=== PATIENT | male | born 1970 | race Two or more races ===

== ENCOUNTER 2016-07-27 11:56 | Emergency (ER) | payer BC ==
[~2016-07-27] VITALS: Ht 177.8 cm; Wt 93.9 kg
[2016-07-27] MEDS ORDERED: XANA0.25 PO (12:08)
[2016-07-27] MEDS ORDERED: ADDE20CA PO (12:08)
[2016-07-27] MEDS ORDERED: HYDR-4274 PO (12:08)
[2016-07-27] MEDS ORDERED: NS 1,000 ML IV ONE (13:45)
[2016-07-27 13:52] LABS: BASO # 0.1 K/mm3 (0.0-0.2); BASO % 1.2 % (0.0-1.0); EOS # 0.2 K/mm3 (0.0-0.50); EOS % 2.8 % (0.0-3.0); LARGE UNSTAINED CELL # 0.1 K/mm3 (0.0-0.4); LARGE UNSTAINED CELL % 1.4 % (0.0-4.0); LYMPH # 1.7 K/mm3 (1.5-4.5); LYMPH % 19.6 % (24.0-44.0); MEAN CORPUSCULAR HEMOGLOBIN 31.1 pg (27.0-33.0); MEAN CORPUSCULAR HGB CONC 32.2 g/dl (32.0-36.5); MEAN CORPUSCULAR VOLUME 96.5 fl (80.0-96.0); MONO # 0.6 K/mm3 (0.0-0.8); MONO % 6.9 % (0.0-5.0); NEUTROPHILS # 5.5 K/mm3 (1.8-7.7); NEUTROPHILS % 68.1 % (36.0-66.0); PLATELET COUNT, AUTOMATED 252 k/mm3 (150-450); WHITE BLOOD COUNT 8.1 K/mm3 (4.0-10.0)
[2016-07-27 13:54] LABS: CALCIUM OXALATE CRYSTALS MODERATE
[2016-07-27 14:00] LABS: INR 0.95
--- NOTE | 2016-07-27 14:11 | REP ---
Clinical: Hematuria. Comparison: 10/04/2015. Findings: Lung bases clear. Visualized heart and pericardium normal. Liver, spleen, pancreas, collapsed gallbladder, bilateral adrenal glands and kidneys are normal for noncontrast evaluation. Specifically, there is no perinephric stranding, hydroureteronephrosis, intrarenal or obstructing ureteral calculi. The enteric system is without obstruction or acute inflammatory process and a normal terminal ileum and appendix are identified in the right lower quadrant. Pelvis demonstrates normal bladder and age appropriate prostate/seminal vesicles. Small fat containing left inguinal hernia is suggested. No ascites. No free air. No adenopathy. Abdominal aorta normal caliber without aneurysm. 1 cm fat containing periumbilical hernia. Musculoskeletal structures normal. Impression: No acute intra-abdominal or pelvic pathology appreciated. Small fat containing left inguinal and periumbilical hernias noted. Signed by Obi Knight MD 07/27/2016 02:02 P
[2016-07-27 14:14] LABS: ALBUMIN 4.1 GM/DL (3.2-5.2); ALBUMIN/GLOBULIN RATIO 1.17 (1.00-1.93); ALKALINE PHOSPHATASE 77 U/L (45-117); ALT/SGPT 95 U/L (12-78); ANION GAP 6 MEQ/L (8-16); AST/SGOT 35 U/L (15-37); BILIRUBIN,DIRECT < 0.1 MG/DL (0.0-0.2); BILIRUBIN,TOTAL 0.3 MG/DL (0.2-1.0); BLOOD UREA NITROGEN 18 MG/DL (7-18); CALCIUM LEVEL 9.3 MG/DL (8.5-10.1); CARBON DIOXIDE LEVEL 30 MEQ/L (21-32); CHLORIDE LEVEL 106 MEQ/L (98-107); GLOMERULAR FILTRATION RATE > 60.0 (>60); GLUCOSE, FASTING 90 MG/DL (70-105); POTASSIUM SERUM 4.5 MEQ/L (3.5-5.1); SODIUM LEVEL 142 MEQ/L (136-145); TOTAL PROTEIN 7.6 GM/DL (6.4-8.2)
[2016-07-27 14:51] VITALS: BP 144/98
== END 2016-07-27 14:54 | disposition home or self-care (01) ==
LOC: M ED 13:55
DX: R31.9 Hematuria, unspecified (principal); K40.90 Unilateral inguinal hernia, without obstruction or gangrene, not specified as recurrent; K45.8 Other specified abdominal hernia without obstruction or gangrene; R51 Headache; F17.200 Nicotine dependence, unspecified, uncomplicated

== ENCOUNTER → 2016-07-29 | Outpatient (REF) | payer BC ==
[~2016-07-29] MED LIST: ADDE20CA PO; HYDR-4274 PO; XANA0.25 PO
== END ==
LOC: M SMT 15:31
PROVIDERS: ATTEND Nurse Practitioner Women's Health
DX: R31.0 Gross hematuria (principal)

== ENCOUNTER → 2016-08-06 | Outpatient (REF) | payer BC ==
[2016-08-06 21:52] LABS: CALCIUM OXALATE CRYSTALS,URINE SMALL AMOUNT /hpf; MICROSCOPIC EXAM PERFORMED; RBC, URINE 0-1 /hpf (0-3); SQUAMOUS EPITHELIAL CELL URINE SMALL AMOUNT /hpf (SMALL AMT); WBC, URINE 0-1 /hpf (0-3)
[2016-08-06 21:53] LABS: BACTERIA, URINE NONE SEEN; HYALINE CAST, URINE 0-1 /lpf (0-1)
== END ==
LOC: M SMT 17:07
PROVIDERS: ATTEND Specialist
DX: R31.0 Gross hematuria (principal)

== ENCOUNTER → 2016-08-25 | Outpatient (CLI) | payer BC ==
[~2016-08-25] MED LIST changes: +ISOVUE-370 76% 100ML VIAL (Q9967) As Ordered ONE
--- NOTE | 2016-08-29 10:32 | REP ---
CT abdomen pelvis multiphase scanning: Comparison is 07/27/2016. Studies performed for gross hematuria. The visualized lung yarbrough are unremarkable. Scanning is performed initially without IV contrast. This is followed by IV contrast enhanced imaging during the arterial phase of enhancement. Scanning is again performed during the delayed equilibrium phase of enhancement. The hepatic parenchyma, gallbladder, pancreas and spleen are unremarkable on all phases of the study, and unchanged. The adrenals, kidneys and abdominal aorta are unremarkable on all a phases of the study. There are no renal calculi. There is no hydronephrosis. There is no perinephric stranding. No renal masses or cysts are identified. There are no bladder calculi, nodules, or masses. There is no bowel distension. The mesentery is unremarkable. Pelvis: The appendix is unremarkable. There is no adenopathy or ascites. There is a small left inguinal hernia containing omental fat but no bowel. There is a small umbilical hernia containing omental fat but no bowel. These are unchanged. Impression: Essentially negative CT study of the abdomen pelvis with multiphase scanning. There are no renal, ureteral or bladder calculi. No renal or bladder masses are identified. No renal cysts are identified. No perinephric stranding. There is a small fat-containing umbilical hernia. There is a small fat-containing left inguinal hernia. These are unchanged. Signed by Van Duque MD 08/29/2016 10:23 A
== END ==
LOC: M RAD 15:22
PROVIDERS: ATTEND Specialist
DX: R31.0 Gross hematuria (principal); K40.90 Unilateral inguinal hernia, without obstruction or gangrene, not specified as recurrent; K42.9 Umbilical hernia without obstruction or gangrene
CPT/HCPCS: 74178; Q9967

== ENCOUNTER 2017-02-16 13:49 | Emergency (ER) | payer BC ==
[~2017-02-16] VITALS: Ht 177.8 cm; Wt 94.1 kg
[~2017-02-16 13:49] MED LIST changes: -ADDE20CA PO; +ADDE20CA3 PO; -HYDR-4274 PO; +HYDR50TA70 PO; -ISOVUE-370 76% 100ML VIAL (Q9967) As Ordered ONE
[2017-02-16] MEDS ORDERED: ALPR0.5T3 (14:21)
[2017-02-16] MEDS ORDERED: AMLO5TAB2 (14:21)
[2017-02-16] MEDS ORDERED: LIDOCAINE 1% SDV INJ 30 ML VIAL SC SCH (15:45)
[2017-02-16] MEDS ORDERED: IBUPROFEN 800 MG TAB PO ONE (16:00)
--- NOTE | 2017-02-16 16:43 | REP ---
RIGHT KNEE SERIES: Five views of the right knee are performed. There is no evidence of acute fracture or dislocation. There is a moderate joint effusion in the suprapatellar bursa. IMPRESSION: No acute fracture. Moderate joint effusion. Signed by Van Delong MD 02/17/2017 07:56 P
--- NOTE | 2017-02-16 17:04 | REP ---
Right lower extremity Duplex Doppler venous ultrasound: Real time compression and duplex Doppler interrogation of the right lower extremity deep venous system is performed. The right common femoral, superficial femoral and popliteal veins are fully compressible with transducer pressure and demonstrate normal spontaneous and phasic flow, without evidence of deep venous thrombosis. Impression: No evidence of deep venous thrombosis of the right lower extremity femoral popliteal venous system. There is a complex popliteal cyst measuring 4.5 X 2.0 x 2.9 cm. Signed by Van Delong MD 02/16/2017 04:56 P
[2017-02-16] MEDS ORDERED: IBUP80TA PO (17:16)
[2017-02-16 17:35] VITALS: BP 147/108
== END 2017-02-16 17:37 | disposition home or self-care (01) ==
LOC: M ED 13:49
DX: S83.91XA Sprain of unspecified site of right knee, initial encounter (principal); X58.XXXA Exposure to other specified factors, initial encounter; Y92.099 Unspecified place in other non-institutional residence as the place of occurrence of the external cause; Y93.66 Activity, soccer; Y99.9 Unspecified external cause status; I10 Essential (primary) hypertension; F41.9 Anxiety disorder, unspecified; F17.200 Nicotine dependence, unspecified, uncomplicated; F90.9 Attention-deficit hyperactivity disorder, unspecified type; M71.21 Synovial cyst of popliteal space [Baker], right knee; Z79.899 Other long term (current) drug therapy

== ENCOUNTER 2018-02-08 17:01 | Observation (INO) | payer BC ==
[2018-02-08] MEDS: NS 1,000 ML IV ×2 (17:24→22:43)
[2018-02-08 17:28] LABS: BASO # 0.1 10^3/uL (0.0-0.2); BASO % 1.1 % (0.0-1.0); EOS # 0.2 10^3/uL (0.0-0.50); EOS % 1.8 % (0.0-3.0); HEMATOCRIT 49.9 % (42.0-52.0); HEMOGLOBIN 17.1 g/dl (13.5-17.5); IMMATURE GRANULOCYTE % 0.2 % (0-3.0); LYMPH % 23.8 % (24.0-44.0); MEAN CORPUSCULAR HEMOGLOBIN 33.5 pg (27.0-33.0); MEAN CORPUSCULAR HGB CONC 34.3 g/dl (32.0-36.5); MEAN CORPUSCULAR VOLUME 97.8 fl (80.0-96.0); MONO # 0.7 10^3/uL (0.0-0.8); MONO % 8.4 % (0.0-5.0); NEUTROPHILS # 5.5 10^3/uL (1.8-7.7); NEUTROPHILS % 64.7 % (36.0-66.0); PLATELET COUNT, AUTOMATED 217 10^3/uL (150-450); RED CELL DISTRIBUTION WIDTH 12.4 % (11.5-14.5); WHITE BLOOD COUNT 8.5 10^3/uL (4.0-10.0)
[2018-02-08 17:50] LABS: ABG BASE EXCESS -5.6 (-2.0-2.0); ABG HCO3 18.7 MEQ/L (22.0-26.0); ABG O2 SATURATION 95.3 % (95.0-99.0); ABG PARTIAL PRESSURE CO2 33.9 mmHg (35.0-45.0); ABG PARTIAL PRESSURE O2 76.5 mmHg (75.0-100.0); ABG STANDARD HCO3 19.9 MEQ/L (22.0-26.0); ABG TOTAL CO2 19.8 MEQ/L (22.0-29.0)
[2018-02-08 18:13] LABS: ACETAMINOPHEN LEVEL < 2.0 UG/ML (10.0-30.0); ALBUMIN 3.8 GM/DL (3.2-5.2); ALBUMIN/GLOBULIN RATIO 0.95 (1.00-1.93); ALKALINE PHOSPHATASE 78 U/L (45-117); ALT/SGPT 98 U/L (12-78); ANION GAP 10 MEQ/L (8-16); AST/SGOT 53 U/L (7-37); BILIRUBIN,DIRECT < 0.1 MG/DL (0.0-0.2); BILIRUBIN,TOTAL 0.3 MG/DL (0.2-1.0); BLOOD UREA NITROGEN 10 MG/DL (7-18); CALCIUM LEVEL 8.6 MG/DL (8.5-10.1); CARBON DIOXIDE LEVEL 22 MEQ/L (21-32); CHLORIDE LEVEL 110 MEQ/L (98-107); CPK CREATINE PHOSPHOKINASE 122 U/L (39-308); ETHYL ALCOHOL (ETHANOL) 0.265 % (0.000-0.010); GLOMERULAR FILTRATION RATE > 60.0 (>60); GLUCOSE, FASTING 107 MG/DL (70-100); POTASSIUM SERUM 4.6 MEQ/L (3.5-5.1); SALICYLATE LEVEL 3.2 MG/DL (5.0-30.0); SODIUM LEVEL 142 MEQ/L (136-145); TOTAL PROTEIN 7.8 GM/DL (6.4-8.2)
[2018-02-08 18:31] LABS: AMPHETAMINES LEVEL URINE NEGATIVE (NEGATIVE); BARBITURATES URINE NEGATIVE (NEGATIVE); BENZODIAZEPINES URINE POSITIVE (NEGATIVE); CANNABINOIDS URINE NEGATIVE (NEGATIVE); COCAINE METABOLITE URINE NEGATIVE (NEGATIVE); METHADONE URINE NEGATIVE (NEGATIVE); OPIATES URINE NEGATIVE (NEGATIVE); PHENCYCLIDINE URINE NEGATIVE (NEGATIVE)
[2018-02-09] MEDS: NICOTINE 21MG/24HR 1 EA TRANSDERMAL TD ×2 (00:54→09:00)
[2018-02-09 01:47] LABS: ALBUMIN 3.5 GM/DL (3.2-5.2); ALBUMIN/GLOBULIN RATIO 0.92 (1.00-1.93); ALKALINE PHOSPHATASE 70 U/L (45-117); ALT/SGPT 87 U/L (12-78); AST/SGOT 37 U/L (7-37); BILIRUBIN,DIRECT < 0.1 MG/DL (0.0-0.2); BILIRUBIN,TOTAL 0.2 MG/DL (0.2-1.0); TOTAL PROTEIN 7.3 GM/DL (6.4-8.2)
[2018-02-09] MEDS ORDERED: zolPIDEM TARTRATE 5 MG TAB PO (02:45)
[2018-02-09] MEDS: LORazepam 2 MG/ML VIAL (J2060) IV (03:13)
[2018-02-09 05:41] LABS: ALBUMIN 3.4 GM/DL (3.2-5.2); ALBUMIN/GLOBULIN RATIO 1.06 (1.00-1.93); ALKALINE PHOSPHATASE 64 U/L (45-117); ALT/SGPT 76 U/L (12-78); ANION GAP 5 MEQ/L (8-16); AST/SGOT 34 U/L (7-37); BILIRUBIN,TOTAL 0.3 MG/DL (0.2-1.0); BLOOD UREA NITROGEN 11 MG/DL (7-18); CALCIUM LEVEL 8.3 MG/DL (8.5-10.1); CARBON DIOXIDE LEVEL 26 MEQ/L (21-32); CHLORIDE LEVEL 114 MEQ/L (98-107); CREATININE FOR GFR 0.98 MG/DL (0.70-1.30); GLOMERULAR FILTRATION RATE > 60.0 (>60); GLUCOSE, FASTING 81 MG/DL (70-100); POTASSIUM SERUM 4.4 MEQ/L (3.5-5.1); SODIUM LEVEL 145 MEQ/L (136-145); TOTAL PROTEIN 6.6 GM/DL (6.4-8.2)
[2018-02-09] MEDS: NS 1,000 ML IV (08:15)
[2018-02-09] MEDS: ENOXAPARIN 40 MG/0.4 ML SYRINGE (J1650) SC (10:34)
[2018-02-09] MEDS: FOLIC ACID 1 MG TAB PO (10:35)
[2018-02-09] MEDS: KETOROLAC 30 MG/ML VIAL (J1885) IV (10:35)
[2018-02-09] MEDS: MULTIVITAMINS/MINERALS THERAP 1 TAB PO (10:35)
[2018-02-09] MEDS: THIAMINE 100 MG TAB PO (10:36)
[2018-02-09] MEDS: ONDANSETRON 4 MG TAB (S0181) PO (10:36)
[2018-02-09] MEDS ORDERED: LORazepam 2 MG/ML VIAL (J2060) IV (11:00)
[2018-02-09] MEDS: OXAZEPAM 10 MG CAP PO ×2 (11:15→16:38)
[2018-02-09 12:13] LABS: CK-MB VALUE MASS < 1.0 NG/ML (<3.6); CPK CREATINE PHOSPHOKINASE 82 U/L (39-308); MB/CK RELATIVE INDEX 1.22 (< OR =4); TROPONIN I < 0.02 NG/ML (< 0.10)
[2018-02-09] MEDS ORDERED: SLF 3 ML SYR IV (13:45)
[2018-02-09] MEDS: SLF 3 ML SYR IV (13:58)
[2018-02-09 16:07] LABS: CK-MB VALUE MASS < 1.0 NG/ML (<3.6); CPK CREATINE PHOSPHOKINASE 86 U/L (39-308); MB/CK RELATIVE INDEX 1.16 (< OR =4); TROPONIN I < 0.02 NG/ML (< 0.10)
== END 2018-02-09 18:31 ==
LOC: M ED 17:01 → M ED INP 20:51 → M ICU 22:22
DX: T42.4X2A Poisoning by benzodiazepines, intentional self-harm, initial encounter (principal); R45.851 Suicidal ideations; F90.9 Attention-deficit hyperactivity disorder, unspecified type; F41.9 Anxiety disorder, unspecified; F10.10 Alcohol abuse, uncomplicated; I10 Essential (primary) hypertension; Z79.899 Other long term (current) drug therapy
CPT/HCPCS: J1885

== ENCOUNTER 2018-02-09 18:40 | Inpatient (IN) | payer BC ==
[~2018-02-09 18:40] MED LIST changes: -ADDE20CA3 PO; -HYDR50TA70 PO; +MAALOX 30 ML SUSP *UDC PO; +MOM 30ML SUSPENSION UDC PO; +OXAZEPAM 10 MG CAP PO; -XANA0.25 PO
[2018-02-09] MEDS ORDERED: ALPRAZolam 0.5 MG TAB PO (20:15)
[2018-02-09] MEDS: NICOTINE 21MG/24HR 1 EA TRANSDERMAL TD (21:00)
[2018-02-10] MEDS: MULTIVITAMINS/MINERALS THERAP 1 TAB PO (09:24)
[2018-02-10] MEDS: FOLIC ACID 1 MG TAB PO (09:24)
[2018-02-10] MEDS: LISINOPRIL 10 MG TAB PO ×2 (09:28→20:56)
[2018-02-10] MEDS: THIAMINE 100 MG TAB PO (09:28)
[2018-02-10] MEDS: ALPRAZolam 0.5 MG TAB PO ×2 (17:32→20:56)
[2018-02-10] MEDS: NICOTINE 21MG/24HR 1 EA TRANSDERMAL TD (20:54)
[2018-02-10] MEDS: traZODone 50 MG TAB PO (20:56)
[2018-02-11] MEDS: ALPRAZolam 0.5 MG TAB PO ×3 (08:17→20:41)
[2018-02-11] MEDS: FOLIC ACID 1 MG TAB PO (08:17)
[2018-02-11] MEDS: MULTIVITAMINS/MINERALS THERAP 1 TAB PO (08:19)
[2018-02-11] MEDS: LISINOPRIL 10 MG TAB PO ×2 (08:19→20:42)
[2018-02-11] MEDS: THIAMINE 100 MG TAB PO (08:20)
[2018-02-11] MEDS: OXAZEPAM 15 MG CAP PO (15:30)
[2018-02-11] MEDS: SERTRALINE HCL 50 MG TAB PO (15:37)
[2018-02-11] MEDS: NICOTINE 21MG/24HR 1 EA TRANSDERMAL TD (20:37)
[2018-02-11] MEDS: traZODone 50 MG TAB PO (20:39)
[2018-02-11] MEDS: PRAZOSIN 1 MG CAP PO (20:41)
[2018-02-12] MEDS: SERTRALINE HCL 50 MG TAB PO (08:12)
[2018-02-12] MEDS: THIAMINE 100 MG TAB PO (08:12)
[2018-02-12] MEDS: MULTIVITAMINS/MINERALS THERAP 1 TAB PO (08:12)
[2018-02-12] MEDS: LISINOPRIL 10 MG TAB PO (08:12)
[2018-02-12] MEDS: FOLIC ACID 1 MG TAB PO (08:13)
[2018-02-12] MEDS: ALPRAZolam 0.5 MG TAB PO ×4 (08:13→20:40)
[2018-02-12] MEDS ORDERED: SERTRALINE HCL 50 MG TAB PO ×2 (09:00)
[2018-02-12] MEDS: LISINOPRIL 5 MG TAB PO (20:39)
[2018-02-12] MEDS: PRAZOSIN 1 MG CAP PO (20:40)
[2018-02-12] MEDS: traZODone 50 MG TAB PO (20:40)
[2018-02-12] MEDS: NICOTINE 21MG/24HR 1 EA TRANSDERMAL TD (21:00)
[2018-02-13] MEDS: FOLIC ACID 1 MG TAB PO (08:22)
[2018-02-13] MEDS: MULTIVITAMINS/MINERALS THERAP 1 TAB PO (08:22)
[2018-02-13] MEDS: THIAMINE 100 MG TAB PO (08:22)
[2018-02-13] MEDS: SERTRALINE HCL 25 MG TABLET PO (08:22)
[2018-02-13] MEDS: LISINOPRIL 5 MG TAB PO ×2 (08:22→20:36)
[2018-02-13] MEDS: ALPRAZolam 0.5 MG TAB PO ×4 (08:23→20:35)
[2018-02-13] MEDS: ACETAMINOPHEN TAB 650MG DOSE (2X325MG) PO (10:01)
[2018-02-13] MEDS: NICOTINE 21MG/24HR 1 EA TRANSDERMAL TD (20:35)
[2018-02-13] MEDS: PRAZOSIN 1 MG CAP PO (20:35)
[2018-02-13] MEDS: traZODone 100 MG TAB PO (20:36)
[2018-02-14] MEDS: MULTIVITAMINS/MINERALS THERAP 1 TAB PO (09:00)
[2018-02-14] MEDS: LISINOPRIL 5 MG TAB PO ×2 (09:02→20:42)
[2018-02-14] MEDS: THIAMINE 100 MG TAB PO (09:03)
[2018-02-14] MEDS: ALPRAZolam 0.5 MG TAB PO ×3 (09:03→20:40)
[2018-02-14] MEDS: SERTRALINE HCL 25 MG TABLET PO (09:03)
[2018-02-14] MEDS: FOLIC ACID 1 MG TAB PO (09:03)
[2018-02-14] MEDS: ACETAMINOPHEN TAB 650MG DOSE (2X325MG) PO (16:35)
[2018-02-14] MEDS: PRAZOSIN 1 MG CAP PO (20:39)
[2018-02-14] MEDS: traZODone 100 MG TAB PO (20:39)
[2018-02-14] MEDS: NICOTINE 21MG/24HR 1 EA TRANSDERMAL TD (20:44)
[2018-02-15] MEDS: ALPRAZolam 0.5 MG TAB PO (08:56)
[2018-02-15] MEDS: FOLIC ACID 1 MG TAB PO (08:56)
[2018-02-15] MEDS: SERTRALINE HCL 25 MG TABLET PO (08:56)
[2018-02-15] MEDS: LISINOPRIL 5 MG TAB PO (08:57)
[2018-02-15] MEDS: MULTIVITAMINS/MINERALS THERAP 1 TAB PO (08:57)
[2018-02-15] MEDS: THIAMINE 100 MG TAB PO (08:57)
[2018-02-16] MEDS ORDERED: ALPRAZolam 0.5 MG TAB PO (09:00)
== END 2018-02-15 13:35 | disposition home or self-care (01) | DRG 754 ==
LOC: M PSY 18:40
DX: F32.9 Major depressive disorder, single episode, unspecified (principal); I10 Essential (primary) hypertension; R45.851 Suicidal ideations; F41.0 Panic disorder [episodic paroxysmal anxiety]; F10.10 Alcohol abuse, uncomplicated; Z79.899 Other long term (current) drug therapy; E78.5 Hyperlipidemia, unspecified; F17.200 Nicotine dependence, unspecified, uncomplicated

== ENCOUNTER 2018-03-10 11:41 | Emergency (ER) | payer BC ==
[2018-03-10] MEDS: CLINDAMYCIN 900 MG in APPROPRIATE DILUENT 1 EA IV (14:00)
[2018-03-10 14:21] LABS: BASO % 0.5 % (0.0-1.0); EOS # 0.1 10^3/uL (0.0-0.50); EOS % 1.6 % (0.0-3.0); HEMATOCRIT 44.7 % (42.0-52.0); HEMOGLOBIN 15.6 g/dl (13.5-17.5); IMMATURE GRANULOCYTE % 0.2 % (0-3.0); LYMPH # 1.5 10^3/uL (1.5-4.5); LYMPH % 18.5 % (24.0-44.0); MEAN CORPUSCULAR HEMOGLOBIN 32.8 pg (27.0-33.0); MEAN CORPUSCULAR HGB CONC 34.9 g/dl (32.0-36.5); MEAN CORPUSCULAR VOLUME 93.9 fl (80.0-96.0); MONO # 0.8 10^3/uL (0.0-0.8); MONO % 10.4 % (0.0-5.0); NEUTROPHILS # 5.6 10^3/uL (1.8-7.7); NEUTROPHILS % 68.8 % (36.0-66.0); PLATELET COUNT, AUTOMATED 210 10^3/uL (150-450); RED BLOOD COUNT 4.76 10^6/uL (4.30-6.10); RED CELL DISTRIBUTION WIDTH 11.3 % (11.5-14.5); WHITE BLOOD COUNT 8.1 10^3/uL (4.0-10.0)
[2018-03-10 14:35] LABS: ANION GAP 4 MEQ/L (8-16); BLOOD UREA NITROGEN 19 MG/DL (7-18); C REACTIVE PROTEIN QUANTITATIV 1.63 MG/DL (0.00-0.30); CALCIUM LEVEL 9.5 MG/DL (8.5-10.1); CARBON DIOXIDE LEVEL 28 MEQ/L (21-32); CHLORIDE LEVEL 106 MEQ/L (98-107); CREATININE FOR GFR 1.05 MG/DL (0.70-1.30); GLOMERULAR FILTRATION RATE > 60.0 (>60); GLUCOSE, FASTING 95 MG/DL (70-100); POTASSIUM SERUM 4.7 MEQ/L (3.5-5.1); SODIUM LEVEL 138 MEQ/L (136-145)
== END 2018-03-10 15:39 | disposition home or self-care (01) ==
LOC: M ED 11:41
DX: L03.116 Cellulitis of left lower limb (principal); Z98.61 Coronary angioplasty status; G43.909 Migraine, unspecified, not intractable, without status migrainosus; R07.9 Chest pain, unspecified; I10 Essential (primary) hypertension; K21.9 Gastro-esophageal reflux disease without esophagitis; Z87.442 Personal history of urinary calculi; M54.5 Low back pain; F41.9 Anxiety disorder, unspecified; F32.9 Major depressive disorder, single episode, unspecified; Z79.899 Other long term (current) drug therapy
CPT/HCPCS: 80048

== ENCOUNTER 2018-09-29 18:04 | Emergency (ER) | payer BC, OTHER ==
[~2018-09-29] VITALS: Ht 175.3 cm; Wt 99.1 kg
[~2018-09-29 18:04] MED LIST changes: +ADDE1TAB14 PO; +ADDE20CA3 PO; +ALPR0.5T3; +ALPR0.5T3 PO; +ALPR1TAB3 PO; +AMLO5TAB6; +CEPH500C; +CLEO300C2 PO; +FOLI1TAB11 PO; +HYDR50TA70 PO; +IBUP80TA PO; +LISI-542 PO; +LISI-672 PO; -MAALOX 30 ML SUSP *UDC PO; +MINI1CAP PO; -MOM 30ML SUSPENSION UDC PO; -OXAZEPAM 10 MG CAP PO; +SERT25TA85 PO; +THIA100TA PO; +TRAZ10TA PO; +VITMTA PO; +XANA0.25 PO
[2018-09-29 18:46] LABS: BASO # 0.1 10^3/uL (0.0-0.2); BASO % 0.9 % (0.0-1.0); EOS # 0.2 10^3/uL (0.0-0.50); EOS % 2.5 % (0.0-3.0); HEMATOCRIT 44.2 % (42.0-52.0); HEMOGLOBIN 15.4 g/dl (13.5-17.5); LYMPH # 1.7 10^3/uL (1.5-4.5); LYMPH % 26.1 % (24.0-44.0); MEAN CORPUSCULAR HEMOGLOBIN 31.8 pg (27.0-33.0); MEAN CORPUSCULAR HGB CONC 34.8 g/dl (32.0-36.5); MEAN CORPUSCULAR VOLUME 91.1 fl (80.0-96.0); MONO # 0.6 10^3/uL (0.0-0.8); NEUTROPHILS # 3.9 10^3/uL (1.8-7.7); NEUTROPHILS % 61.3 % (36.0-66.0); PLATELET COUNT, AUTOMATED 166 10^3/uL (150-450); RED BLOOD COUNT 4.85 10^6/uL (4.30-6.10); WHITE BLOOD COUNT 6.3 10^3/uL (4.0-10.0)
--- NOTE | 2018-09-29 18:55 | REP ---
Clinical: Acute chest pain . Comparison: 04/24/2014. Findings: The mediastinum and cardiac silhouette are stable and within normal limits for portable technique. The lung yarbrough are clear without acute consolidation, effusion, or pneumothorax. Skeletal structures are intact. Impression: No acute cardiopulmonary process appreciated. Electronically Signed by Obi Knight MD 09/29/2018 06:47 P
--- NOTE | 2018-09-29 19:05 | REP ---
Clinical: Left facial numbness.. Comparison: none. Findings: The ventricles, sulci, and cisterns are normal in position and appearance. Delong-white differentiation is maintained. No acute intracranial hemorrhage, mass/mass effect, pathology or trauma/injury. No evidence for acute infarction. No extra-axial fluid collection. Calvarium is intact. Paranasal sinuses and mastoid air cells are clear. Impression: Normal noncontrast head CT. No evidence for acute intracranial pathology or trauma/injury. Electronically Signed by Obi Knight MD 09/29/2018 06:57 P
[2018-09-29 19:15] LABS: BLOOD UREA NITROGEN 22 MG/DL (7-18); CALCIUM LEVEL 9.1 MG/DL (8.5-10.1); CARBON DIOXIDE LEVEL 26 MEQ/L (21-32); CHLORIDE LEVEL 105 MEQ/L (98-107); CPK CREATINE PHOSPHOKINASE 126 U/L (39-308); CREATININE FOR GFR 1.14 MG/DL (0.70-1.30); GLOMERULAR FILTRATION RATE > 60.0 (>60); GLUCOSE, FASTING 92 MG/DL (70-100); MB/CK RELATIVE INDEX 1.03 (< OR =4); POTASSIUM SERUM 4.2 MEQ/L (3.5-5.1); SODIUM LEVEL 139 MEQ/L (136-145); TROPONIN I < 0.02 NG/ML (< 0.10)
[2018-09-29] MEDS ORDERED: NS 1,000 ML IV ONE (20:00)
[2018-09-29] MEDS ORDERED: SUCRALFATE SUSP 1GM/10ML UD PO ONE (20:00)
[2018-09-29] MEDS ORDERED: PANTOPRAZOLE 40MG INJ (PROTONIX) (C9113) IV ONE (20:00)
--- NOTE | 2018-09-29 20:05 | ECGEPIP ---
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
[2018-09-29] MEDS ORDERED: LISINOPRIL 5 MG TAB PO ONE (21:00)
[2018-09-29 21:32] VITALS: BP 175/89
[2018-09-29 23:08] VITALS: BP 138/96
[2018-09-29 23:32] LABS: CPK CREATINE PHOSPHOKINASE 128 U/L (39-308); MB/CK RELATIVE INDEX 1.02 (< OR =4); TROPONIN I < 0.02 NG/ML (< 0.10)
[2018-09-29] MEDS ORDERED: PROT1TAB2 PO (23:39)
[2018-09-29] MEDS ORDERED: SUCR1SS PO (23:39)
--- NOTE | 2018-09-30 05:44 | ECGEPIP ---
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
== END 2018-09-29 23:46 | disposition home or self-care (01) ==
LOC: M ED 18:04 → EDBD 18:04 → M ED 23:46
DX: E86.0 Dehydration (principal); K21.9 Gastro-esophageal reflux disease without esophagitis; R00.1 Bradycardia, unspecified; I10 Essential (primary) hypertension; E78.5 Hyperlipidemia, unspecified; F41.9 Anxiety disorder, unspecified; F32.9 Major depressive disorder, single episode, unspecified; Z87.891 Personal history of nicotine dependence
CPT/HCPCS: 70450; 71045; 80048; 82550; 82553; 84484; 85025; 93005; 93041; 94760; 96361; 96374; 99285; C9113

== ENCOUNTER 2021-10-05 12:45 | Emergency (ER) | payer OTHER, SELFPAY ==
[~2021-10-05] VITALS: Ht 177.8 cm; Wt 90.9 kg
[~2021-10-05 12:45] MED LIST changes: +AMLO1TAB24; -AMLO5TAB6; -LISI-542 PO; -LISI-672 PO; +LISI30TA4 PO; +LISI5TAB11 PO; +PROT1TAB2 PO; +SUCR1SS PO; -TRAZ10TA PO; +TRAZ1TAB12 PO
[2021-10-05] MEDS ORDERED: IBUP80TA (13:08)
[2021-10-05] MEDS ORDERED: LISI20TA35 (13:08)
[2021-10-05 13:40] LABS: BASO # 0.1 10^3/uL (0.0-0.2); BASO % 0.4 % (0.0-1.0); EOS # 0.1 10^3/uL (0.0-0.5); EOS % 0.6 % (0.0-3.0); HEMATOCRIT 44.1 % (42.0-52.0); LYMPH % 8.1 % (24.0-44.0); MEAN CORPUSCULAR HEMOGLOBIN 31.8 pg (27.0-33.0); MEAN CORPUSCULAR VOLUME 93.6 fl (80.0-96.0); MONO # 0.8 10^3/uL (0.0-0.8); MONO % 6.5 % (2.0-8.0); NEUTROPHILS # 10.4 10^3/uL (1.5-8.5); NEUTROPHILS % 83.9 % (36.0-66.0); PLATELET COUNT, AUTOMATED 244 10^3/uL (150-450); RED BLOOD COUNT 4.71 10^6/uL (4.30-6.10); WHITE BLOOD COUNT 12.4 10^3/uL (4.0-10.0)
[2021-10-05 14:05] LABS: ALBUMIN 4.1 GM/DL (3.2-5.2); BILIRUBIN,DIRECT 0.2 MG/DL (0.0-0.2); BILIRUBIN,TOTAL 0.9 MG/DL (0.2-1.0); TOTAL PROTEIN 7.7 GM/DL (6.4-8.2)
[2021-10-05] MEDS ORDERED: NS 1,000 ML IV ONE (14:15)
[2021-10-05] MEDS ORDERED: ISOVUE-370 76% 100ML VIAL As Ordered ONE (14:28)
[2021-10-05] MEDS ORDERED: KETOROLAC 30 MG/ML 1ML VIAL IV ONE (15:35)
[2021-10-05] MEDS ORDERED: NAPR500T6 PO (15:41)
[2021-10-05 16:59] VITALS: BP 159/79
== END 2021-10-05 17:09 | disposition home or self-care (01) ==
LOC: M ED 12:45
DX: R10.32 Left lower quadrant pain (principal); I10 Essential (primary) hypertension; F32.A Depression, unspecified; E78.5 Hyperlipidemia, unspecified; Z79.811 Long term (current) use of aromatase inhibitors; Z79.899 Other long term (current) drug therapy
CPT/HCPCS: 74177; 80047; 80076; 81001; 83690; 85025; 96361; 96374; 99284; J1885; Q9967